=== PATIENT | male | born 1985 | race Caucasian/White ===

== ENCOUNTER 2021-03-17 08:52 | Emergency (ER) | payer OTHER, SELFPAY ==
[2021-03-17 08:57] VITALS: BP 143/67; PULSE 52; RESP 16; TEMP 36.3; O2SAT 99; BMI 29.6
--- NOTE | 2021-03-17 09:14 | ED_ITS ---
HPI - Dental/Oral General Chief complaint: Dental/Oral Stated complaint: dental pain Time Seen by Provider: 03/17/21 09:14 Source: patient Mode of arrival: ambulatory Limitations: no limitations History of Present Illness HPI Narrative: Patient is a 36 year old male presenting to the emergency department today with dental pain. Patient states that he has issues with his teeth, specifically a tooth in the bottom right side of his mouth. Patient states that he has been having trouble getting into a dentist and now he is having increased pain. Patient denies any dizziness, lightheadedness, abdominal pain, nausea, vomiting, fever, chills, blurry vision, double vision, loss of vision, chest pain, dif ficulty breathing, shortness of breath, back pain, night sweats, pain with urination, increased urinary frequency, increased urinary urgency, blood in his urine or stool, syncope or a near syncopal episode, recent trauma or falls, bowel incontinence, bladder incontinence, bowel retention, bladder retention, or any other complaints at this time. MD Complaint: tooth pain Location: Tooth # (30) Onset (ago): hour(s) Duration: constant Severity: mild Severity scale (1-10): 3 Relieving factors: nothing Exacerbating factors: nothing Context: history of dental caries and poor dental care Treatment prior to arrival: none Related Data Previous Rx's Medication Instructions Recorded hydrocodone 5 mg-acetaminophen 325 1 tab PO DAILY PRN 2 Days #1 tab 03/17/21 mg tablet hydrocodone 5 mg-acetaminophen 325 1 tab PO Q8H PRN 3 Days #3 tab 03/17/21 mg tablet Allergies Allergy/AdvReac Type Severity Reaction Status Date / Time yumiko Allergy Hives Verified 03/17/21 09:00 Review of Systems Verdana 4l Constitutional: Verdana 4d Verdana 4d Constitutional: Verdana 4d Reports no additional constitutional complaints, Denies chills, Denies fever(s) and Denies night sweats Verdana 4l Eyes: Verdana 4d Verdana 4d Eyes: Verdana 4d Reports no additional eye complaints, Denies blurry vision, Denies change in vision, Denies diplopia, Denies eye discharge, Denies loss of vision and Denies eye pain Verdana 4l ENT: Verdana 4d Reports dental pain and Denies dizziness Verdana 4l Cardiovascular: Verdana 4d Verdana 4d Cardiovascular: Verdana 4d Reports no additional cardiovascular complaints, Denies chest pain, Denies lightheadedness, Denies Loss of Consciousness and Denies dyspnea Verdana 4l Respiratory: Verdana 4d Verdana 4d Respiratory: Verdana 4d Reports no additional respiratory complaints and Denies dyspnea Verdana 4l Gastrointestinal: Verdana 4d Verdana 4d Gastrointestinal: Verdana 4d Reports no additional gastrointestinal complaints, Denies abdominal pain, Denies melena, Denies hematochezia, Denies change in bowel habits and Denies change in stool character Verdana 4l Genitourinary: Verdana 4d Verdana 4d Genitourinary: Verdana 4d Reports no additional male genitourinary complaints, Denies hematuria, Denies oliguria, Denies difficulty urinating, Denies dysuria, Denies urinary frequency, Denies urinary hesitancy, Denies urinary incontinenceincontinence and Denies urinary urgency Musculoskeletal: Musculoskeletal: Reports no additional musculoskeletal complaints, Denies numbness and Denies tingling Neurologic: Denies dizziness, Denies loss of vision, Denies numbness and Denies tingling Psychiatric: Psychiatric: Reports no additional psychiatric complaints Endocrine: Endocrine: Reports no additional endocrine complaints Hematologic/Lymphatic: Hematologic/Lymphatic: Reports no additional hematologic/lymphatic complaints Allergic/Immunologic: Allergic/Immunologic: Reports no additional allergic/immunologic complaints [facility] Past Medical History Attestation statement: The following information was validated with the patient. Source: old records reviewed Medical History GERD (gastroesophageal reflux disease) Social History Social History Advance Directives: No Advance Directives Information Provided: No Physical Exam Verdana 4l Vital Signs: Verdana 4d Verdana 4d Vital Signs: Verdana 4d Verdana 4Bd Last Vital Signs Verdana 4d Pharmacometrician New 4d Pharmacometrician New 4d Temp 97.3 F 03/17/21 08:57 Pharmacometrician New 4d Pulse 52 03/17/21 08:57 Pharmacometrician New 4d Resp 16 03/17/21 08:57 BP 143/67 H 03/17/21 08:57 Pulse Ox 99 03/17/21 08:57 BMI result Body Mass Index 29.6 Const: General: cooperative, no acute distress, alert and awake Nutritional Appearance: well nourished Orientation/consciousness: patient oriented x3 Limitations: no limitations HENMT: Head: Yes normal to inspection and Yes atraumatic Ears: hearing grossly normal bilaterally and external ears normal General nose exam: Normal external nose present, no nasal discharge noted and no epistaxis Face and sinus: Yes normal facial exam, No abrasion and No laceration Mouth: Normal oral and palatal mucosa present, no drooling and no muffled voice Teeth image: 1. Dental caries and source of patient's dental pain Eyes: General: appearance normal, both eyes and all related structures Periorbital: periorbital findings normal Eyelids: Yes eyelids normal Conjunctivae: conjunctivae normal Pupils: Equal, round and reactive pupils present EOM: EOMs intact bilaterally Neck: Neck: Yes normal visual inspection, Yes full ROM and Yes no lymphadenopathy Chest: Chest palpation & inspection: normal inspection of the chest Resp: Effort & Inspection: normal respiratory effort and able to speak in complete sentences GI: Inspection: Yes normal to inspection Neuro: General: patient oriented x3 and moves all extremities Cranial nerves: Yes Equal, round and reactive pupils present Cognition (Neuro): normal cognition Motor exam (neuro): 5/5 motor strength present throughout Sensory Exam: Normal double simultaneous stimulation for sensation Coordination: [id number] test normal Extrem: General: Yes normal to inspection, Yes full ROM and Yes capillary refill normal Psych: Appearance: grossly normal Mental Status: mental status grossly normal Affect: normal affect Attitude: cooperative Thought process: Normal thought process present Thought content: Normal thought content present Insight: Good insight present (Psych) MDM - Dental/Oral MDM Narrative Medical decision making narrative: Patient is a 36 year old male presenting to the emergency department today with dental pain. Patient's physical exam showed dental caries throughout his mouth and specifically in tooth #30. No signs of abscess in the patient's mouth. I explained my physical exam findings to the patient. I answered all questions asked by the patient. I stressed the importance of the patient taking his medication as prescribed. I stressed the importance of the patient following up with his primary care provider and dentist. I stressed the importance of the patient returning to the emergency department immediately if his symptoms were to worsen or if he were to develop any dizziness, shortness of breath, difficulty breathing, chest pain, blurry vision, loss of vision, nausea, vomiting, abdominal pain, fever, chills, back pain, or any other complaints. Patient verbalized agreement and understanding with this treatment plan and discharge. Differential Diagnosis Differential diagnosis: Likely dental caries, toothache and dental abscess Medical Records Attestation: I reviewed the patient's medical records. Discharge Plan Discharge Clinical Impression: Toothache Patient Disposition: Home, Self-Care Instructions: Toothache (ED), Opioid Safety (ED), Safe Disposal of Opioids (ED) Additional Instructions: Call or visit any of the clinics below to establish with a dentist: [facility] [address] [place] [address] [facility] [address] [facility], [address] [address] [facility] [address] [place] [address] [facility] [address] [place] [id number] [facility] [address] [place] [address] [place] [address] [place] [address] Prescriptions: New hydrocodone-acetaminophen 5-325 mg tablet 1 tab PO Q8H PRN (Reason: pain, severe) 3 Days Qty: 3 0RF hydrocodone-acetaminophen 5-325 mg tablet 1 tab PO DAILY PRN (Reason: dental pain) 2 Days Qty: 1 0RF Referrals: Anatoly Leon MD [Primary Care Provider] - 2 days Interventions: ED Discharge Assessment Last Done: 03/17/21 09:34 Discharge Date/Time: 03/17/21 09:40 Print Language: Ghanaian
== END 2021-03-17 09:40 | disposition home or self-care (01) ==
PROVIDERS: Emergency Provider Emergency Medicine; PCP Internal Medicine
DX: K08.89 Other specified disorders of teeth and supporting structures (principal); K02.9 Dental caries, unspecified
CPT/HCPCS: 99283

== ENCOUNTER → 2021-11-21 08:46 | Outpatient (BNVA) | payer OTHER, SELFPAY | PROVIDERS: PCP Internal Medicine; Visit Provider Physician Assistant | DX: S46.912A Strain of unspecified muscle, fascia and tendon at shoulder and upper arm level, left arm, initial encounter (principal); X50.0XXA Overexertion from strenuous movement or load, initial encounter | CPT/HCPCS: 99203 ==

== ENCOUNTER 2021-11-29 10:41 | Outpatient (REF) | payer OTHER, SELFPAY ==
[2021-11-29 11:00] LABS: MANUAL DIFF FLAG NO
[2021-11-29 11:29] LABS: Appearance Urine Clear; Color Urine Yellow; Glucose Urine UA Negative (Negative); Leukocyte Esterase Urine Negative (Negative); Nitrite Urine Negative (Negative); Specific Gravity - Urine 1.025 (1.005-1.025); Urine Blood Negative (Negative); Urine Ketones Negative (Negative); Urine Protein Trace mg/dL (Neg-Trace)
[2021-11-29 11:32] LABS: Basophils Absolute Auto 0.1 X10*3/uL (0.0-0.2); Basophils Percent Auto 0.6 % (0-2); Eosinophils Absolute Auto 0.2 X10*3/uL (0.0-0.4); Eosinophils Percent Auto 2.4 % (0-4); Hematocrit 44.2 % (42.0-52.0); Hemoglobin 14.8 g/dl (14.0-18.0); Imm Gran Abs Auto 0.05 X10*3/uL (0.00-0.03); Imm Gran Pct Auto 0.6 % (0.0-0.4); Lymphocytes Absolute Auto 2.5 X10*3/uL (1.2-4.9); Lymphocytes Percent Auto 30.4 % (20-40); Mean Corpuscular HGB Conc 33.5 g/dl (31.0-36.0); Mean Corpuscular Volume 89.7 fL (80.0-98.0); Mean Platelet Volume 9.4 fL (9.4-12.4); Monocytes Absolute Auto 0.8 X10*3/uL (0.1-1.2); Monocytes Percent Auto 9.6 % (2-11); Neutrophils Absolute Auto 4.6 x10*3/uL (2.0-8.3); Neutrophils Percent Auto 56.4 % (45-73); Platelet Count 280 X10*3/uL (160-400); Red Blood Count 4.93 X10*6/uL (4.60-5.80); Red Cell Distribution Width 11.9 % (11.0-16.0); White Blood Count 8.2 X10*3/uL (4.8-10.8)
[2021-11-29 12:34] LABS: Alanine Aminotransferase 40 U/L (0-40); Albumin Level 4.4 g/dL (3.5-5.0); Alkaline Phosphatase 59 U/L (39-117); Anion Gap 14 (12-20); Aspartate Amino Transferase 22 U/L (5-37); Bilirubin Total 0.9 mg/dL (0.0-1.0); Blood Urea Nitrogen 16 mg/dL (9-16); Calcium 9.1 mg/dL (8.4-10.2); Carbon Dioxide 25 mmol/L (22-29); Chloride 107 mmol/L (96-108); Estimated Glomerular Filt Rate > 60; Glucose Random 99 mg/dL (60-115); Potassium 4.2 mmol/L (3.3-5.1); Sodium 142 mmol/L (135-145); Total Protein 7.3 g/dL (6.5-8.0)
[2021-12-01 04:39] LABS: HBS Num1 79.95 mIU/mL (0-7.99); ~Hepatitis B Surface Antibody REACTIVE (Nonreactive)
[2021-12-01 05:14] LABS: Syphilis Screen Reactive (Nonreactive)
[2021-12-02 15:21] LABS: Absolute CD3 Count 2128 cells/uL (840-3060); Absolute CD4 Count 909 cells/uL (490-1740); Absolute CD8 Count 1331 cells/uL (180-1170); Absolute Lymphocytes 2504 cells/uL (850-3900); CD4 CD8 Ratio 0.68 (0.86-5.00); Percent CD3 Cells 85 % (57-85); Percent CD4 Cells 36 % (30-61); Percent CD8 Cells 53 % (12-42)
[2021-12-02 19:32] LABS: HIV RNA PCR Qn Copies 35 copies/mL (NOT DETECTED); HIV RNA PCR Qn Log Copies 1.54 (NOT DETECTED)
[2021-12-05 14:46] LABS: RPR Quantitative Reactive 1:8 (Nonreactive); T.Pallidum Particle Agg Test Reactive (Nonreactive)
== END 2021-11-29 10:42 | disposition home or self-care (01) ==
LOC: HO.LAB 10:41
PROVIDERS: Absent Provider Internal Medicine; PCP Internal Medicine; Visit Provider Family Medicine
DX: B20 Human immunodeficiency virus [HIV] disease (principal)
CPT/HCPCS: 36415; 80053; 81003; 85025; 86359; 86360; 86592; 86706; 86780; 87536

== ENCOUNTER 2021-12-13 10:14 | Outpatient (REF) | payer OTHER, SELFPAY ==
[2021-12-15 05:38] LABS: Syphilis Screen Reactive (Nonreactive)
[2021-12-17 15:25] LABS: RPR Quantitative Reactive 1:8 (Nonreactive); T.Pallidum Particle Agg Test Reactive (Nonreactive)
== END 2021-12-13 10:15 | disposition home or self-care (01) ==
LOC: HO.LAB 10:14
PROVIDERS: Internal Medicine; PCP Family Medicine; Visit Provider Family Medicine
DX: B20 Human immunodeficiency virus [HIV] disease (principal)
CPT/HCPCS: 36415; 86592; 86780

== ENCOUNTER 2022-02-18 13:27 | Emergency (ER) | payer OTHER, SELFPAY ==
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
[2022-02-18 14:19] VITALS: BP 125/78; PULSE 74; RESP 19; TEMP 36.2; O2SAT 96; BMI 33.3
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
--- OUTSIDE RECORDS SUMMARY | 2022-02-18 16:53 | XMS_ITS | Encounter Summary ---
:1985 Author Reason for Visit COVID-19 symptoms cough, sore throat, sinus pressure, ches t congestion, wheezing, fatigue started on Wednesday Assessment and Plan Assessment Note COVID swab done today came back negativ e Rapid strep came back negative Throat culture will be sent off Take albuterol for any chest pressure/wh eezing as needed Take gywi-kym-zyuqfgv cough and cold med s as we discussed 1. Suspected COVID-19 ? SARS CoV 2 RNA (COVID-19), QL, scientific artist-PC R, respiratory specimen 2. Acute pharyngitis ? sore throat: care instructions ? rapid strep group A, throat ? streptococcus group A, culture, throa t 3. Upper respiratory infection ? upper respiratory infection (cold): c are instructions 4. Cough ? cough: care instructions ? albuterol sulfate HFA 90 mcg/actuatio n aerosol inhaler Discussion Note Reviewed patient?s medical history and co-morbidities addressed. Plan of Care Reminders Provider Appointments None recorded. ? ? Lab SARS CoV 2 RNA (COVID-19), 11/18/2021 [facility] QL, scientific artist-PCR, Respiratory Specimen ? Rapid Strep Group a, Throat 11/18/2021 By [facility] ? Streptococcus Group a, 11/18/2021 [facility] Culture, [facility] Referral None recorded. ? ? Procedures None recorded. ? ? Surgeries None recorded. ? ? Imaging None recorded. ? ? Medications Name Start Date ? ? albuterol sulfate HFA 90 mcg/actuation aerosol inhaler ? Inhale 2 puffs every 4 hours by inhalation route as n eeded. Biktarvy ? cetirizine ? omeprazole ? Medications Administered None recorded. Vitals Blood Pressure 125/86 mm[Hg] Results Lab Results Date Name Specimen Result Interpretation Description Value Range Status Address ? 11/18/2021 Streptococcus Throat ? Specimen throat swab ? [facility], Description Ref erence Culture, Throat L aboratories: [address], [place] ? ? Throat ? Special none ? Final [facility] Requests Referenc e Laboratori es: [address], [place] ? ? Throat ? Culture no group A ? Final [facility] Reference hemolytic Laborat ories: streptococci [address], [place] ? ? Throat ? Report final ? Final [facility] Status 11/21/2021 Refere nce Laboratori es: [address], [place] 11/18/2021 Rapid Strep ? Strep negative ? ? [facility] Group a, Throat [place]: [address], [place] 11/18/2021 SARS CoV 2 RNA ? Result negative ? ? [facility] (COVID-19), QL, [place]: scientific artist-PCR, [address], Respiratory [place] Specimen Allergies Code Code System Name Reaction Severity Onset 7952884 RxNorm [place] ? ? ? Problems None recorded. Procedures None recorded. Vaccine List None recorded. Social History Tobacco Smoking Status Former Smoker What is your level of alcohol consumption? Occasional Functional Status Unknown. Past Encounters Encounter Date Diagnosis Provider 11/18/2021 Suspected COVID-19; Acute Kornelia Moysi s Hammerschmidt, Pharyngitis; Upper Respiratory PA: [address], [place], [place] Infection; Cough [id number], Ph. History of Present Illness Note: <div>Wednesday woke up with ST and has had ST since. +Congerstion/runny nose. +HANNA. Tried Ibu/cough drops with minimal relief. 2 year old at home sick with cough and cold. Patient denies any fevers or chills. Patient was COVID tested prior to coming in and tested negative. No other complaints at this time.</div> Review of Systems: ROS as noted in the HPI Review of Systems ? Comprehensive Adult Problem ROS Reported By: Patient Constitutional: Constitutional: no fever, fa tigue ENMT: ENMT: sinus pressure, conges tion, sore throat Cardiovascular: Cardiovascular: no chest crys n Respiratory: Respiratory: no chest tightn ess, cough, wheezing Gastrointestinal: GI: no nausea, no vomiting, no diarrhea Musculoskeletal: Musculoskeletal: myalgia Neurological symptoms: Neuro: headache Allergic/Immunologic: Allergy/Immunologic: no snee zing, runny nose Physical Exam ? Notes: <div>General: Alert and orie nted x3 in no apparent distress

Skin: [place] warm and dry. No lesions or masses appreciated throughout

Eyes: Pupils equal round and reactive to light and accommodation bilaterally. Extra ocular movements intact. Conjunctiv a are clear bilaterally. Noninjected sclera.

ENT: TMs are clear w ith visible tympanic membranes noted bilaterally. Ear canals are without cerum en and infection bilaterally. Nasal passages are clear. Pharynx with mild eliu thema without edema diffusely. Uvula is midline. Tonsils without exudate note d bilaterally

Heart: Regular rate and rhythm with no murmurs, rubs , gallops

Lungs: Are clear to auscultation bilaterally with no wheezes, rales or rhonchi

Musculoskeletal: Full range of motion of upper and lower extremities bilaterally.

Neuro exam: Cranial nerves II thro ugh XII intact. Engineering Aid strength are 5 out of 5 bilaterally. Sensorineurally intact

Psych: Mood is congruent affect. Patient is calm and cooperat glory in no distress.</div>
--- OUTSIDE RECORDS SUMMARY | 2022-02-18 16:53 | XMS_ITS ---
:1985 Author Care Team Providers Name Role Phone Urgent Care Primary Care Provider Unavailable Allergies Code Code System Name Reaction Severity Status Onset [id number] RxNorm [place] ? ? Active ? Medications Name Status Start Date Stop Date ? ? albuterol sulfate HFA 90 mcg/actuation aerosol inhaler Active ? Not available Inhale 2 puffs every 4 hours by inhalation route as needed. Biktarvy Active ? Not available cetirizine Active ? Not available omeprazole Active ? Not available Problems None recorded. Procedures None recorded. Results Lab Results Date Name Specimen Result Interpretation Description Value Range Status Address ? 11/18/2021 Streptococcus Throat ? Specimen throat swab ? Final [facility] Group a, Description Ref erence Culture, Throat L aboratories: [address], [place] ? ? Throat ? Special none ? Final [facility] Requests Referenc e Laboratori es: [address], [place] ? ? Throat ? Culture no group A ? Final [facility] beta Reference hemolytic Laborat ories: streptococci [address], [place] ? ? Throat ? Report final ? Final [facility] Status 11/21/2021 Refere nce Laboratori es: [address], [place] 11/18/2021 Rapid Strep ? Strep negative ? ? [facility] Group a, Throat [place]: [address], [place] 11/18/2021 SARS CoV 2 RNA ? Result negative ? ? [facility] (COVID-19), QL, [place]: manager solution-PCR, [address], Respiratory [place] Specimen Past Encounters Encounter Date Diagnosis Provider 11/18/2021 Suspected COVID-19; Acute Kornelia Moysi s Hammerschmidt, Pharyngitis; Upper Respiratory PA: [address], [place], [place] Infection; Cough [id number], Ph. Social History Tobacco Smoking Status Former Smoker Vaccine List None recorded. Plan of Care Reminders Provider Appointments None recorded. ? ? Lab None recorded. ? ? Referral None recorded. ? ? Procedures None recorded. ? ? Surgeries None recorded. ? ? Imaging None recorded. ? ? Vitals Blood Pressure 125/86 mm[Hg]
[2022-02-18 17:01] VITALS: BP 124/88; PULSE 75; TEMP 36.6; O2SAT 98
[2022-02-18 17:19] LABS: Carbon Monoxide POC 0.5 %
[2022-02-18 17:20] LABS: Carbon Monoxide Refer to POC result
--- NOTE | 2022-02-18 17:30 | PC.NURSE ---
Patients VSS . breathing even and unlabored . lungs clear throughout . skin pink warm and dry . labs have been obtained and sent .
--- NOTE | 2022-02-18 18:21 | PC.NURSE ---
patient discharged by provider .
== END 2022-02-18 18:22 | disposition home or self-care (01) ==
PROVIDERS: Physician Assistant Medical; Emergency Provider Internal Medicine; PCP Internal Medicine
DX: J68.9 Unspecified respiratory condition due to chemicals, gases, fumes and vapors (principal); R06.02 Shortness of breath; R07.89 Other chest pain; Z79.899 Other long term (current) drug therapy
CPT/HCPCS: 36415; 71046; 82375; 99283; 99284

== ENCOUNTER 2022-09-28 13:01 | Outpatient (AMB) | payer OTHER, SELFPAY ==
--- NOTE | 2022-09-28 13:10 | A.OFFVIS_ITS ---
Intake Vital Signs 09/28/22 13:18 Height 5 ft 8 in Weight 210 lb 2 oz BMI 31.9 BP 155/73 H Blood Pressure Location Lt brachial Position Sitting Pulse 71 Intake Visit Reasons: Hemorrhoids Intake Note: Patient is seen in office for evaluation of hemorrhoids Patient c/o: onset one week, on/off, blood with hard stool, bright red, denies any other concerns such as diarrhea, constipation, nausea, vomit Cardiology Technician Required: No Accompanied by: Self / Same As Patient Allergies yumiko Allergy (Verified 09/28/22 13:14) Hives Medication List - Last Reviewed 09/28/22 by REGGIE Segura albuterol sulfate 90 mcg/actuation 0 mcg inhalation [id number] ala 50-200-25 mg (Biktarvy) 1 tab PO DAILY cetirizine 10 mg PO DAILY hydrocodone-acetaminophen 5-325 mg 1 tab PO Q8H PRN 3 days hydrocodone-acetaminophen 5-325 mg 1 tab PO DAILY PRN 2 days omeprazole 20 mg PO QAM HPI Hemorrhoids HPI Details 37-year-old male referred for hemorrhoids. He says that he frequently sees bright red per rectum on wiping after bowel movements. He denies any pain. He also says that he engages in anal receptive intercourse and would often bleed with this and he says that this becomes very embarrassing. He had hemorrhoid surgery about 10 years ago. He does state that he had significant pain postop and stated that he would like to hold off on any hemorrhoid surgery if at all possible. He denies being constipated. [facility] Medical History (Updated 09/28/22 @ 13:30 by Jerry Holloway MD) Bleeding hemorrhoids GERD (gastroesophageal reflux disease) HIV (human immunodeficiency virus infection) Surgical History History of hemorrhoidectomy Review of Systems Const Denies chills and Denies fever(s) Card Denies chest pain, Denies dyspnea and Denies dyspnea on exertion Resp Denies cough, Denies dyspnea and Denies dyspnea on exertion GI Reports hematochezia and Denies change in bowel habits Denies hematuria and Denies difficulty urinating Musc Denies back pain and Denies limited range of motion Neuro Denies focal weakness and Denies convulsions Psych Denies depression and Denies mood swings Physical Exam Const General: comfortable and no acute distress Orientation/consciousness: patient oriented x3 Neck Neck: Yes no lymphadenopathy Resp Auscultation: clear to auscultation bilaterally Cardio Rhythm: regular rhythm GI Other: Rectal exam shows no perianal lesions, anoscopy as described Palpation (GI): Soft to palpation, nontender and no guarding Neuro General: patient oriented x3 Office Procedures Anoscopy He was in leilani-knife position. The anoscope was gently inserted. A full examination of the anal canal was done. He did have what appeared to be a mixed internal external hemorrhoidal column on the right posterior which seems to bleeding easily. There were no other lesions. There was no fissure. He had good sphincter tone. There was no induration on digital exam. There is no tenderness [id number] Assessment & Plan Assessment & Plan (1) Bleeding hemorrhoids: Code(s): K64.9 - Unspecified hemorrhoids Plan: He says his main complaint is that he bleeds with anal receptive intercourse as well as with some bowel movements. He does not want to proceed with any surgery although I did have a long talk with him about this. He says he had already had hemorrhoid surgery about 10 years ago and does not want to go through that again. I am going to prescribe him a steroid suppository in the meantime to see if that may help with his hemorrhoidal bleeding. He does understand this is welcome to come back to the office to be re-evaluated for his hemorrhoids down the line if he chooses to. Coding Level of Care Code New Pt Level 3 (67401) Diagnoses Bleeding hemorrhoids K64.9 CPT Codes Details - CPT: [id number] ([id number])
[2022-09-28 13:18] VITALS: BP 155/73; PULSE 71; BMI 31.9
== END 2022-09-28 13:47 | disposition home or self-care (01) ==
PROVIDERS: PCP Internal Medicine; Referring Provider Internal Medicine; Visit Provider Surgery
DX: K64.9 Unspecified hemorrhoids (principal)
CPT/HCPCS: 46600; 99203

== ENCOUNTER → 2022-09-28 13:01 | Outpatient (BNVA) | payer OTHER, SELFPAY | PROVIDERS: PCP Internal Medicine; Referring Provider Internal Medicine; Visit Provider Surgery | DX: K64.8 Other hemorrhoids (principal); K21.9 Gastro-esophageal reflux disease without esophagitis; B20 Human immunodeficiency virus [HIV] disease | CPT/HCPCS: 46600; 99202 ==

== ENCOUNTER 2023-09-14 16:21 | Outpatient (REF) | payer OTHER, SELFPAY ==
[2023-09-14 16:39] LABS: MANUAL DIFF FLAG NO
[2023-09-14 17:06] LABS: Basophils Percent Auto 0.4 % (0-2); Eosinophils Absolute Auto 0.3 X10*3/uL (0.0-0.4); Eosinophils Percent Auto 3.5 % (0-4); Hematocrit 45.1 % (42.0-52.0); Hemoglobin 15.4 g/dl (14.0-18.0); Imm Gran Abs Auto 0.04 X10*3/uL (0.00-0.03); Imm Gran Pct Auto 0.4 % (0.0-0.4); Lymphocytes Absolute Auto 3.9 X10*3/uL (1.2-4.9); Lymphocytes Percent Auto 40.9 % (20-40); Mean Corpuscular HGB Conc 34.1 g/dl (31.0-36.0); Mean Corpuscular Hemoglobin 30.4 pg (27.0-33.0); Mean Platelet Volume 9.7 fL (9.4-12.4); Monocytes Absolute Auto 0.8 X10*3/uL (0.1-1.2); Monocytes Percent Auto 7.9 % (2-11); Neutrophils Absolute Auto 4.4 x10*3/uL (2.0-8.3); Neutrophils Percent Auto 46.9 % (45-73); Platelet Count 249 X10*3/uL (160-400); Red Blood Count 5.07 X10*6/uL (4.60-5.80); Red Cell Distribution Width 12.1 % (11.0-16.0); White Blood Count 9.4 X10*3/uL (4.8-10.8)
[2023-09-14 17:13] LABS: Appearance Urine Cloudy; Color Urine Yellow; Glucose Urine UA Negative (Negative); Leukocyte Esterase Urine Small (1+) (Negative); Nitrite Urine Negative (Negative); PH 6.5 (5.0-9.0); UMIC TRIGGER UACC YES; Urine Blood Negative (Negative); Urine Ketones Negative (Negative); Urine Protein Negative (Neg-Trace)
[2023-09-14 17:16] LABS: Bacteria Urine None Seen (None Seen); Hyaline Casts Urine 0-2 /LPF (0-2); RBC Urine 0-2 /HPF (0-2); Squamous Epithelial Cell Urine 0-2 /HPF (0-2); UACC Culture Trigger YES
[2023-09-15 05:49] LABS: Estimated Average Glucose 114 mg/dL; Hemoglobin A1c % 5.6 % (<6.0)
[2023-09-15 12:04] LABS: HIV RNA PCR Qn Copies NOT DETECTED copies/mL (NOT DETECTED); HIV RNA PCR Qn Log Copies NOT DETECTED (NOT DETECTED)
[2023-09-15 12:23] LABS: RPR Rapid Plasma Reagin NON-REACTIVE (NON-REACTIVE)
[2023-09-15 17:38] LABS: Toxoplasma IgG Antibody <7.20 IU/mL; Toxoplasma IgM Antibody <8.00 AU/mL
[2023-09-16 07:53] LABS: HCV Log PCR <1.18 NOT DETECTED Log IU/mL (NOT DETECTED); HepC Viral Load <15 NOT DETECTED IU/mL (NOT DETECTED)
[2023-09-17 02:19] LABS: TS Negative Control Passed; TS Panel A 0; TS Panel B 0; TS Positive Control Passed; TSpotTB Negative (Negative)
[2023-09-18 01:38] LABS: Absolute CD3 Count 3229 cells/uL (840-3060); Absolute CD4 Count 1421 cells/uL (490-1740); Absolute CD8 Count 1999 cells/uL (180-1170); Absolute Lymphocytes 3779 cells/uL (850-3900); CD4 CD8 Ratio 0.71 (0.86-5.00); Percent CD3 Cells 85 % (57-85); Percent CD4 Cells 38 % (30-61); Percent CD8 Cells 53 % (12-42)
== END 2023-09-14 16:22 | disposition home or self-care (01) ==
LOC: HO.LAB 16:21
PROVIDERS: Absent Provider Internal Medicine; PCP Internal Medicine; Visit Provider Student in an Organized Health Care Education/Training Program
DX: Z21 Asymptomatic human immunodeficiency virus [HIV] infection status (principal)
CPT/HCPCS: 36415; 81001; 83036; 85025; 86359; 86360; 86481; 86592; 86777; 86778; 87086; 87522; 87536

== ENCOUNTER 2023-09-15 07:28 | Outpatient (REF) | payer OTHER, SELFPAY ==
[2023-09-15 08:59] LABS: Alanine Aminotransferase 50 U/L (0-40); Albumin Level 4.3 g/dL (3.5-5.0); Alkaline Phosphatase 59 U/L (39-117); Anion Gap 13 (12-20); Aspartate Amino Transferase 28 U/L (5-37); Bilirubin Total 1.1 mg/dL (0.0-1.0); Blood Urea Nitrogen 14 mg/dL (9-16); Calcium 9.3 mg/dL (8.4-10.2); Carbon Dioxide 25 mmol/L (22-29); Chloride 107 mmol/L (96-108); Cholesterol 248 mg/dL (<200); Estimated Glomerular Filt Rate > 60; Glucose Random 105 mg/dL (60-115); HDL Cholesterol 38 mg/dL (>40); LDL Cholesterol Calculated 143 mg/dL (<100); Potassium 3.9 mmol/L (3.3-5.1); Sodium 141 mmol/L (135-145); Total Protein 7.3 g/dL (6.5-8.0); Triglycerides 339 mg/dL (<150)
== END 2023-09-15 07:29 | disposition home or self-care (01) ==
LOC: HO.LAB 07:28
PROVIDERS: PCP Internal Medicine; Visit Provider Student in an Organized Health Care Education/Training Program
DX: Z21 Asymptomatic human immunodeficiency virus [HIV] infection status (principal)
CPT/HCPCS: 36415; 80053; 80061

== ENCOUNTER 2023-10-04 12:06 | Outpatient (REF) | payer OTHER, SELFPAY ==
[2023-10-04 14:24] LABS: CT PCR NOT DETECTED (Not Detect.); NG PCR NOT DETECTED (Not Detect.)
[2023-10-07 16:33] LABS: C.Trachomatis RNA TMA, Rectal NOT DETECTED; N.Gonorrhoeae RNA TMA, Rectal NOT DETECTED
[2023-10-08 00:08] LABS: C. Trachomatis RNA TMA, Throat NOT DETECTED; N. gonorrhoeae RNA TMA, Throat DETECTED
== END 2023-10-04 12:07 | disposition home or self-care (01) ==
LOC: HO.HHCLNP 12:06
PROVIDERS: Visit Provider Student in an Organized Health Care Education/Training Program
DX: B20 Human immunodeficiency virus [HIV] disease (principal)
CPT/HCPCS: 87491; 87591; 88112

== ENCOUNTER 2023-10-08 16:32 | Outpatient (REF) | payer OTHER, SELFPAY | END 2023-10-08 16:33 | disposition home or self-care (01) | LOC: HO.HHCLNP 16:32 | PROVIDERS: Visit Provider Student in an Organized Health Care Education/Training Program | DX: A54.9 Gonococcal infection, unspecified (principal) | CPT/HCPCS: 36415; 87081 ==

== ENCOUNTER 2023-10-25 11:36 | Outpatient (REF) | payer OTHER, SELFPAY ==
[2023-10-29 20:28] LABS: C. Trachomatis RNA TMA, Throat NOT DETECTED; N. gonorrhoeae RNA TMA, Throat NOT DETECTED
== END 2023-10-25 11:37 | disposition home or self-care (01) ==
LOC: HO.HHCLNP 11:36
PROVIDERS: Visit Provider Student in an Organized Health Care Education/Training Program
DX: A54.9 Gonococcal infection, unspecified (principal)
CPT/HCPCS: 87491; 87591

== ENCOUNTER 2024-05-10 08:38 | Outpatient (REF) | payer OTHER, SELFPAY ==
--- OUTSIDE RECORDS SUMMARY | 2024-05-10 09:05 | XMS_ITS | Clinical Summary ---
Author Organization [facility] Address [address] [place] [address] Care Team Providers Care Child Care Center Administrator Name Role Phone Unavailable Primary Care Provider Unavailabl e Surgical History Surgery Date Site/Laterality Comments WISDOM TOOTH EXTRACTION PROCEDURE: HISTORICAL WISDOM TEETH EXTRACTION Medical History Medical History Date Comments HIV (human immunodeficiency virus infection) ([facility]) DX:HIV (human immunodeficien cy virus infection) ([facility]) Family History Medical History Relation Name Comments Other: Good health Father Diabetes Maternal Grandmother Diabetes Mother Hypertension Mother Relation Name Status Comments Father Alive Maternal Grandmother Mother Alive Diabetes and hy pertension Social History Tobacco Use Types Packs/Day Years Used Date Smoking Tobacco: Former Cigarettes Q uit: 03/27/2009 Alcohol Use Standard Drinks/Week Comments No 0 (1 standard drink = 0.6 oz pur e alcohol) Sex and Gender Information Value Date Recorded Sex Assigned at Not on file Legal Sex Male 5:32 AM EST Gender Identity Not on file Sexual Orientation Not on file Obstetrics History Plan of Treatment Health Maintenance Due Date Last Done Comments Hepatitis B Vaccines (1 of 3 - 19+ 3-dose series) 01/13/2003 DTaP,Tdap,and Td Vaccines (2 - Td or Tdap) 05/26/2016 05/26/2006 COVID-19 Vaccine ( - 2023-2 5 season) 2023 Influenza Vaccine (#1) 2023 12/10/2009 Pneumococcal Vaccine: Pediat rics (0 to 5 Years) and At-Risk Patients (6 to 64 Years) Aged Out 06/20/2008 No longer eligi ble based on patient's age to complete this topic HIB Vaccines Aged Out No longer eligi ble based on patient's age to complete this topic HPV Vaccines Aged Out No longer eligi ble based on patient's age to complete this topic Hepatitis A Vaccines Aged Out No long er eligible based on patient's age to complete this topic IPV Vaccines Aged Out No longer eligi ble based on patient's age to complete this topic MMR Vaccines Aged Out No longer eligi ble based on patient's age to complete this topic Meningococcal ACWY Vaccine Aged Out N o longer eligible based on patient's age to complete this topic Meningococcal B Vacine Aged Out No lo nger eligible based on patient's age to complete this topic RSV Immunization Patients Un dominique 20 months Aged Out No longer eligible b ased on patient's age to complete this topic Varicella Vaccines Aged Out No longer eligible based on patient's age to complete this topic
--- OUTSIDE RECORDS SUMMARY | 2024-05-10 09:05 | XMS_ITS | Clinical Summary ---
Author Organization [facility] [employer] [facility] Address [address] [place] [address] Care Team Providers Care Superintendent [employer] Name Role Phone Anatoly Leon MD Primary Care Pr ovider Allergies No known active allergies Medications GENVOYA [phone] mg tab TAKE 1 TABLET BY MOUTH AT BEDTIME 11 11/09/2017 Active omeprazole (PriLOSEC) 20 MG capsule Take 20 mg by mouth daily. Active cetirizine (ZyrTEC) 10 MG tablet Take 10 mg by mouth daily. Active Social History Tobacco Use Types Packs/Day Years Used Date Smoking Tobacco: Never Smokeless Tobacco: Never Sex and Gender Information Value Date Recorded Sex Assigned at Not on file Legal Sex Male 2:04 PM EDT Gender Identity Not on file Sexual Orientation Not on file Last Filed Vital Signs Vital Sign Reading Time Taken Comments Blood Pressure 132/88 04/20/2018 3:43 PM EDT Pulse 68 04/20/2018 3:43 PM EDT Temperature 37.1 ??C (98.7 ??F) 04/20/2018 3:43 PM ED T Respiratory Rate 18 04/20/2018 3:43 PM EDT Oxygen Saturation 99% 04/20/2018 3:43 PM EDT Inhaled Oxygen Concentration - - Weight 92.1 kg (203 lb) 04/20/2018 3:43 PM EDT Height 172.7 cm (5' 8 ) 04/20/2018 3:43 PM EDT Body Mass Index 30.87 04/20/2018 3:43 PM EDT Plan of Treatment Health Maintenance Due Date Last Done Comments Depression: Screening Annual ly using PHQ-2/9 in Adults 18 yrs or above (or HM Modifier)([facility]) 01/13/2002 Hepatitis C Virus Infection in Adolescents and Adults: Screening (or Modifier) ([facility]) 01/13/2002 SDOH Screening Reminder: Michelle sofielly for all adults ([facility]) 01/13/2002 Tobacco Smoking Cessation: i n Adults excluding Women: Behavioral and Pharmacotherapy Interventions ([facility]) 01/13/2002 DTaP/Tdap/Td Vaccines ([facility]) (1 - Tdap) 01/13/2003 Lipid Screening: Every 5 yrs for Men aged 35+ (or HM Modifier) ([facility]) 2020 Flu Vaccination: Yearly for ages 18mos through 64 years (or Modifier)([facility]) 09/09/2023 COVID-19 Vaccine Screening: Initial Series and Booster Status ([facility]) ( - 2023- season) 2023 Zoster/Shingles Vaccine Seri es Screening: Adults aged 18+ yrs (or HM Modifiers)([facility]) (1 of 2) 01/13/2034 Pneumococcal Vaccination Scr eening: Pts 0-19 & 19-49 yrs of age ([facility]) Aged Out No longer eligible based on patient's age to complete this topic Medical Devices Not on file Care Teams Superintendent Oil Field Drilling Relationship Specialty Start Date End Date Anatoly Leon MD [address] [place] [phone] PCP - General Family Medicine 04/20/18
[2024-05-10 11:29] LABS: MANUAL DIFF FLAG NO
[2024-05-10 11:37] LABS: Basophils Percent Auto 0.4 % (0-2); Eosinophils Absolute Auto 0.2 X10*3/uL (0.0-0.4); Eosinophils Percent Auto 2.7 % (0-4); Hematocrit 45.5 % (42.0-52.0); Hemoglobin 15.5 g/dl (14.0-18.0); Imm Gran Abs Auto 0.03 X10*3/uL (0.00-0.03); Imm Gran Pct Auto 0.4 % (0.0-0.4); Lymphocytes Absolute Auto 3.1 X10*3/uL (1.2-4.9); Lymphocytes Percent Auto 41.9 % (20-40); Mean Corpuscular HGB Conc 34.1 g/dl (31.0-36.0); Mean Corpuscular Hemoglobin 30.8 pg (27.0-33.0); Mean Corpuscular Volume 90.3 fL (80.0-98.0); Mean Platelet Volume 9.9 fL (9.4-12.4); Monocytes Absolute Auto 0.5 X10*3/uL (0.1-1.2); Monocytes Percent Auto 7.1 % (2-11); Neutrophils Absolute Auto 3.5 x10*3/uL (2.0-8.3); Neutrophils Percent Auto 47.5 % (45-73); Platelet Count 255 X10*3/uL (160-400); Red Blood Count 5.04 X10*6/uL (4.60-5.80); Red Cell Distribution Width 12.6 % (11.0-16.0); White Blood Count 7.3 X10*3/uL (4.8-10.8)
[2024-05-10 12:08] LABS: Anion Gap 10 (12-20); Blood Urea Nitrogen 12 mg/dL (9-16); Carbon Dioxide 27 mmol/L (22-29); Chloride 108 mmol/L (96-108); Potassium 4.1 mmol/L (3.3-5.1); Sodium 141 mmol/L (135-145)
[2024-05-10 12:09] LABS: Alanine Aminotransferase 53 U/L (0-40); Albumin Level 4.4 g/dL (3.5-5.0); Alkaline Phosphatase 55 U/L (39-117); Aspartate Amino Transferase 37 U/L (5-37); Bilirubin Total 1.2 mg/dL (0.0-1.0); Calcium 9.3 mg/dL (8.4-10.2); Estimated Glomerular Filt Rate > 60; Glucose Random 100 mg/dL (60-115); Total Protein 7.3 g/dL (6.5-8.0)
[2024-05-12 14:18] LABS: HIV RNA PCR Qn Copies 94 copies/mL (NOT DETECTED); HIV RNA PCR Qn Log Copies 1.97 (NOT DETECTED)
[2024-05-14 18:18] LABS: Absolute CD3 Count 2765 cells/uL (840-3060); Absolute CD4 Count 1137 cells/uL (490-1740); Absolute CD8 Count 1828 cells/uL (180-1170); Absolute Lymphocytes 3163 cells/uL (850-3900); CD4 CD8 Ratio 0.62 (0.86-5.00); Percent CD3 Cells 87 % (57-85); Percent CD4 Cells 36 % (30-61); Percent CD8 Cells 58 % (12-42)
== END 2024-05-10 08:39 | disposition home or self-care (01) ==
LOC: HO.HHCL 08:38
PROVIDERS: Visit Provider Internal Medicine
DX: Z21 Asymptomatic human immunodeficiency virus [HIV] infection status (principal)
CPT/HCPCS: 36415; 80053; 85025; 86359; 86360; 87536

== ENCOUNTER 2024-07-10 10:35 | Outpatient (REF) | payer OTHER, SELFPAY ==
--- OUTSIDE RECORDS SUMMARY | 2024-07-10 11:41 | XMS_ITS | Clinical Summary ---
Author Organization [facility] Address [address] [place] [address] Care Team Providers Care Educational Consultant Name Role Phone Unavailable Primary Care Provider Unavailabl e Surgical History Surgery Date Site/Laterality Comments WISDOM TOOTH EXTRACTION PROCEDURE: HISTORICAL WISDOM TEETH EXTRACTION Medical History Medical History Date Comments HIV (human immunodeficiency virus infection) ([facility], [facility]28) DX:HIV (human im munodeficiency virus infection) ([facility]) Family History Medical History Relation Name Comments [...] Td or Tdap) 05/26/2016 05/26/2006 COVID-19 Vaccine (2023-2 5 season) 2023 Influenza Vaccine (Season Ended) 2024 12/11/19 10 Pneumococcal Vaccine: Pediat rics (0 to 5 [...] age to complete this topic Meningococcal B Vaccine Aged Out No l onger eligible based on patient's age to complete this topic RSV Immunization Patients Un dominique 20 months Aged Out No longer eligible b ased on patient's age to complete this topic Varicella Vaccines Aged Out No longer eligible based on patient's age to complete this topic
[2024-07-10 12:36] LABS: HBS Num1 78.89 mIU/mL (0-7.99); HBc Num1 0.06 S/CO (0.00-0.79); HBsAGNum1 0.31 S/CO (0.00-0.99); Hepatitis B Core Antibody Nonreactive (Nonreactive); Hepatitis B Surface Antigen Negative (Negative); ~Hepatitis B Surface Antibody REACTIVE (Nonreactive)
[2024-07-10 13:49] LABS: CT PCR NOT DETECTED (Not Detect.); NG PCR NOT DETECTED (Not Detect.)
[2024-07-11 09:33] LABS: RPR Rapid Plasma Reagin NON-REACTIVE (NON-REACTIVE)
[2024-07-11 17:38] LABS: Rubella IgG Antibody 1.44 Index; Rubeola IgG (Measles) >300.00 AU/mL
[2024-07-13 23:24] LABS: C. Trachomatis RNA TMA, Throat NOT DETECTED; N. gonorrhoeae RNA TMA, Throat NOT DETECTED
[2024-07-13 23:39] LABS: C.Trachomatis RNA TMA, Rectal NOT DETECTED; N.Gonorrhoeae RNA TMA, Rectal NOT DETECTED
[2024-07-14 05:38] LABS: Hepatitis A Antibody IgG REACTIVE (Nonreactive); ~Hepatitis A Antibody IgG 4.92 S/CO (0.00-0.99)
== END 2024-07-10 10:36 | disposition home or self-care (01) ==
LOC: HO.HHCL 10:35
PROVIDERS: Visit Provider Student in an Organized Health Care Education/Training Program
DX: Z21 Asymptomatic human immunodeficiency virus [HIV] infection status (principal)
CPT/HCPCS: 36415; 86592; 86704; 86706; 86708; 86735; 86762; 86765; 87340; 87491; 87591